=== PATIENT | female | born 1985 | race Caucasian/White ===

== ENCOUNTER 2017-04-19 16:28 | Inpatient (IN) | payer BC ==
[2017-04-19 17:06] VITALS: BMI 35.4
[2017-04-19 17:30] LABS: Amnisure Test RUPTURE DETECTED (No Rupture)
[2017-04-19 17:31] LABS: Amnisure Internal Control QC ACCEPTABLE (ACCEPTABLE)
[2017-04-19] MEDS ORDERED: LR / Pitocin 40 units/1000 ml 1,000 ML IV PRN (17:54)
[2017-04-19] MEDS ORDERED: HYDROcodone/Acetaminophen 5/325 mg Tablet PO PRN (17:54)
[2017-04-19] MEDS ORDERED: Lidocaine 1% (PF) 30 ML VIAL SC PRN (17:54)
[2017-04-19] MEDS ORDERED: Misoprostol 200 MCG TAB PR PRN (17:54)
[2017-04-19] MEDS ORDERED: Ondansetron HCl/PF 4 MG/2 ML Vial IVP PRN ×2 (17:54→22:33)
[2017-04-19] MEDS ORDERED: Acetaminophen 500 MG TAB PO PRN (17:54)
[2017-04-19] MEDS ORDERED: Ibuprofen 800 MG TAB PO PRN (17:54)
[2017-04-19] MEDS ORDERED: Promethazine HCl 25 MG/ML VIAL IM PRN ×2 (17:54→22:33)
[2017-04-19] MEDS ORDERED: LR 500 ML/Oxytocin 10 units 500 ML IV SCH (18:00)
[2017-04-19] MEDS: Lactated Ringer's 1,000 ML IV SCH ×2 (18:10→22:37)
[2017-04-19 18:27] LABS: Hemoglobin 13.1 g/dL (12.0-16.0); Mean Corpuscular HGB CONC 33.8 g/dL (32.0-36.0); Mean Corpuscular Hemoglobin 31.3 pg (27.0-31.0); Mean Corpuscular Volume 92.6 fl (81.0-99.0); Mean Platelet Volume 8.9 fL (7.4-10.4); Platelet Count 273 thou/uL (130-400); RBC Distribution Width 11.3 % (11.5-14.5); Red Blood Cell (RBC) Count 4.18 mill/uL (4.20-5.40)
[2017-04-19 19:16] LABS: Syphilis Antibody Nonreactive (Nonreactive); Syphilis Antibody Index 0.04 S/CO (<1.00 Non-Reactive)
[2017-04-19 19:17] LABS: HBSAg Index 0.23 S/CO (0-0.99); Hep B Surf Ag Non-Reactive S/CO (NonReactive)
[2017-04-19] MEDS ORDERED: Fentanyl 4 mcg/Marc 0.1% Cadd 100 ML ONE (21:42)
[2017-04-19] MEDS ORDERED: ePHEDrine/0.9% NaCl/PF SYRINGE 50 mg/10 ml SLOW IVP PRN (22:33)
[2017-04-19] MEDS ORDERED: diphenhydrAMINE 50 MG/ML VIAL IVP PRN (22:33)
[2017-04-19] MEDS ORDERED: Acetaminophen 325 MG TAB PO PRN (22:33)
[2017-04-19] MEDS ORDERED: Lactated Ringer's 500 ML IV PRN (22:33)
[2017-04-19] MEDS ORDERED: Eucerin (Mineral Oil/Petrolatum,White) 30 gm Jar TOP PRN (22:33)
[2017-04-19] MEDS ORDERED: Naloxone HCl 0.4 mg/ml Vial IVP PRN ×2 (22:33)
[2017-04-19] MEDS: Fentanyl 4mcg/Marcaine 0.1% Cassette 100 ML EPIDURAL SCH (22:39)
[2017-04-19] MEDS ORDERED: Communication Order-Pharmacy FS SCH (22:45)
[2017-04-20] MEDS: Lactated Ringer's 1,000 ML IV SCH ×2 (00:47→09:49)
[2017-04-20] MEDS: Fentanyl 4mcg/Marcaine 0.1% Cassette 100 ML EPIDURAL SCH ×2 (05:54→12:25)
[2017-04-20] MEDS ORDERED: FLU VACC QS2017-18 36 mo. & older 0.5 ML SYRINGE IM ONE (09:00)
[2017-04-20] MEDS ORDERED: Adacel (T-DAP) 0.5 ML VIAL IM ONE (14:47)
[2017-04-20] MEDS ORDERED: Bisacodyl 10 MG SUPP PR PRN (14:47)
[2017-04-20] MEDS ORDERED: Lanolin Ointment 7 GM TUBE TOP PRN (14:47)
[2017-04-20] MEDS ORDERED: LR / Pitocin 40 units/1000 ml 1,000 ML IV SCH (14:47)
[2017-04-20] MEDS ORDERED: Milk Of Magnesia 30 ML UDCUP PO PRN (14:47)
--- NOTE | 2017-04-20 15:17 | OP ---
DATE OF PROCEDURE: 04/20/2017 TIME: 1346 hours. PREOPERATIVE DIAGNOSES: 1. Postdates. 2. Macrosomia. POSTOPERATIVE DIAGNOSES: 1. Postdates. 2. Macrosomia. PROCEDURE: Spontaneous vaginal delivery with repair of a partial third-degree midline episiotomy. SURGEON: Clarence Herrera M.D. ANESTHESIA: Epidural. PROCEDURE: This 31-year-old white female G1, P0 taken to delivery room, complete and pushing. Prepp ed and draped sterilely. The mother pushed for approximately 1 hour and 45 minutes. She did very we ll. Dr. Waldron was present in case of dystocia. However, baby delivered nicely and smoothly. Baby was Delee'd on the peritoneum and baby delivered without any difficulty. The cord was clamped and c ut. Delivered the placenta, 3-vessel intact. A partial third-degree very small anal sphincter tear was repaired with 3-0 Vicryl. The second-degree was repaired with 3-0 chromic. Estimated blood loss was 400 mL. Sponge and instrument counts were correct.
[2017-04-20] MEDS: Ferrous Sulfate 325 MG TAB PO SCH (18:30)
[2017-04-20] MEDS ORDERED: ePHEDrine/0.9% NaCl/PF SYRINGE 50 mg/10 ml ONE (20:56)
[2017-04-20] MEDS ORDERED: Bupivacaine 0.25% HCL 30 ML VIAL ONE (20:56)
[2017-04-20] MEDS ORDERED: HYDROcodone/Acetaminophen 5/325 mg Tablet PO PRN (21:19)
[2017-04-20] MEDS: Ibuprofen 800 MG TAB PO SCH (22:19)
[2017-04-20] MEDS: Docusate Calcium (SURFAK) 240 MG CAP PO SCH (22:19)
[2017-04-21] MEDS: Ibuprofen 800 MG TAB PO SCH ×3 (05:59→21:50)
[2017-04-21 06:38] LABS: Hemoglobin 9.4 g/dL (12.0-16.0); Mean Corpuscular HGB CONC 34.1 g/dL (32.0-36.0); Mean Corpuscular Hemoglobin 32.1 pg (27.0-31.0); Mean Corpuscular Volume 94.2 fl (81.0-99.0); Mean Platelet Volume 8.6 fL (7.4-10.4); Platelet Count 196 thou/uL (130-400); RBC Distribution Width 11.4 % (11.5-14.5); Red Blood Cell (RBC) Count 2.92 mill/uL (4.20-5.40); White Blood Cell (WBC) Count 14.3 thou/uL (4.8-10.8)
[2017-04-21] MEDS: Prenatal Vitamin 1 TAB PO SCH (08:44)
[2017-04-21] MEDS: Docusate Calcium (SURFAK) 240 MG CAP PO SCH ×2 (08:44→21:50)
[2017-04-21] MEDS: Ferrous Sulfate 325 MG TAB PO SCH ×2 (08:44→18:13)
--- NOTE | 2017-04-21 08:59 | HP ---
HISTORY OF PRESENT ILLNESS: This is a 31-year-old white female G1, P0, admitted with EDC of 04/13/20 17 at 40 and 6-7th week, being admitted for a post-date induction. However, patient called earlier r eporting that she had rupture of membranes and will be going to labor and delivery sooner. Her prena juliana course has been uncomplicated. No prior rupture of membranes or contractions. No reported fever , nausea or vomiting. PAST MEDICAL HISTORY: Asthma, depression, anxiety. ALLERGIES: None. PAST SURGICAL HISTORY: Removal of left knee hemangioma at age 4 and wisdom teeth. FAMILY HISTORY: Father with hypertension. Paternal grandfather with hypertension and heart disease. Other family members with heart disease including maternal grandfather and paternal grandmother. SOCIAL HISTORY: The patient is a non-smoker. The patient is and remarried. 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 REVIEW OF SYSTEMS: As above. PHYSICAL EXAMINATION: VITAL SIGNS: Stable, afebrile. HEENT: Clear. HEART: Regular rate and rhythm. LUNGS: Clear. ABDOMEN: Soft, gravid. EXTREMITIES: With no edema. LABORATORY AND X-RAY FINDINGS: GBS negative; 3-hour GGT negative; HIV negative. Hematocrit 39.8. H IV negative. O positive blood type. RPR nonreactive. Rubella immune. Urine culture negative. Pap smear negative, GC chlamydia negative. ASSESSMENT: 1. A 41-week intrauterine . 2. Post-date. 3. Possible rupture of membranes to be evaluated. PLAN: 1. Admit for Cytotec/Pitocin induction. 2. Routine L&D orders. 3. Anesthesia evaluation.
[2017-04-21] MEDS ORDERED: FLU VACC QS2017-18 36 mo. & older 0.5 ML SYRINGE IM ONE (09:00)
[2017-04-22] MEDS: Ibuprofen 800 MG TAB PO SCH (05:53)
[2017-04-22] MEDS: Ferrous Sulfate 325 MG TAB PO SCH (08:59)
[2017-04-22] MEDS: Docusate Calcium (SURFAK) 240 MG CAP PO SCH (08:59)
[2017-04-22] MEDS: Prenatal Vitamin 1 TAB PO SCH (08:59)
[2017-04-22 09:51] VITALS: BP 98/51; TEMP 98
== END 2017-04-22 12:40 | disposition home or self-care (01) | DRG 775 ==
LOC: L&D/OP 16:28 → L&D 18:04 → 3SW 04-20 18:14
PROVIDERS: ADMIT Family Medicine; ATTEND Family Medicine
PROC: 10E0XZZ Delivery of Products of Conception, External Approach (ICD-10-PCS; principal; 2017-04-20)
PROC: 0DQR0ZZ Repair Anal Sphincter, Open Approach (ICD-10-PCS; 2017-04-20)
PROC: 0KQM0ZZ Repair Perineum Muscle, Open Approach (ICD-10-PCS; 2017-04-20)
DX: O48.0 Post-term pregnancy (principal); O70.20 Third degree perineal laceration during delivery, unspecified; F32.9 Major depressive disorder, single episode, unspecified; F41.9 Anxiety disorder, unspecified; J45.909 Unspecified asthma, uncomplicated; Z3A.41 41 weeks gestation of pregnancy; Z37.0 Single live birth; Z23 Encounter for immunization; O99.52 Diseases of the respiratory system complicating childbirth; O99.344 Other mental disorders complicating childbirth
CPT/HCPCS: 36415; 51701; 51702; 84112; 85027; 86780; 87340; 90715; 99285; J2001; J7120; S0020

== ENCOUNTER 2018-07-14 12:30 | Day surgery (SDC) | payer BC ==
[2018-07-14 13:12] VITALS: BMI 35.9
[2018-07-14 13:13] VITALS: BP 124/75; TEMP 98.5
--- NOTE | 2018-07-14 15:11 | ULT ---
FUltrasound biophysical profile: 07/14/2018 HISTORY: 33-year-old female in third trimester of with decreased movement. FINDINGS: movement: 2 tone: 2 breathing movement: 0 Amniotic fluid volume: 2 Total score: 6 out of 8 heart rate: 124 bpm Placenta: Anterior. No placenta previa. Maternal cervix: Obscured lie: Vertex DARLING: 13 cm IMPRESSION: Biophysical profile score of 6 out of 8, excluding the nonstress test.
--- NOTE | 2018-07-15 02:01 | SS ---
DATE OF ADMISSION: 07/14/2018 DATE OF DISCHARGE: 07/14/2018 REGULAR PHYSICIAN: Darleen Zayas DO. EVALUATING PHYSICIAN: Theron Robert MD CHIEF COMPLAINT: Decreased movement. HISTORY OF PRESENT ILLNESS: Ms. Whitt is a 33-year-old white G2, P1-0-0-1 with an estimated date of confinement of 09/12/2018, who presents complaining of decreased movement since late yesterday. She denies ruptured membranes or vaginal bleeding. Her care has been with Dr. Zayas. She called the office today and they directed her here for evaluation. PAST OBSTETRICAL HISTORY: One previous vaginal delivery at term without complications. PAST MEDICAL HISTORY: Asthma. PAST SURGICAL HISTORY: [place] teeth. CURRENT MEDICATIONS: 1. vitamins. 2. A rescue inhaler on a p.r.n. basis. ALLERGIES: NO KNOWN ALLERGIES. SOCIAL HISTORY: Denies tobacco, alcohol, or drug use. FAMILY HISTORY: Unremarkable. REVIEW OF SYSTEMS: Denies nausea, vomiting, fever, chills, ruptured membranes, or vaginal bleeding. PHYSICAL EXAMINATION: VITAL SIGNS: Stable and she is afebrile in triage. GENERAL: She is pleasant, in no acute distress. The patient is laughing with her family members. ABDOMEN: Soft, nontender, and gravid. PELVIC: Deferred. heart rate tracing is reassuring, and there are no decelerations. She does wilda movements on the nonstress test. Biophysical profile testing returns 6/8 with 2 points deducted for no breathing seen. ASSESSMENT: 1. 31-1/2 week intrauterine . 2. Reassuring assessment here in Labor and Delivery today. PLAN: The patient will be dismissed to home. She was told to keep herself well hydrated and to eat small frequent meals throughout the day and note kick counts. She was given a release from work for today. She may return tomorrow. I did discuss this with Dr. Zayas and she agrees with the plan. Job ID: [id number]
== END 2018-07-14 15:55 | disposition home health service (06) ==
LOC: L&D/OP 12:30
PROVIDERS: ATTEND Obstetrics & Gynecology
DX: O36.8130 Decreased fetal movements, third trimester, not applicable or unspecified (principal); O99.513 Diseases of the respiratory system complicating pregnancy, third trimester; J45.909 Unspecified asthma, uncomplicated; Z3A.31 31 weeks gestation of pregnancy; Z79.899 Other long term (current) drug therapy
CPT/HCPCS: 76819; 99282

== ENCOUNTER 2018-09-13 22:00 | Inpatient (IN) | payer BC ==
--- NOTE | 2018-09-13 16:44 | PDOC.LDHP ---
Labor and Delivery H&P Chief complaint: scheduled induction HPI: 33 yo @ 40w1d by 16 week sono who presents for elective IOL. PMHx: Depression on Wellbutrin and controlled asthma. Due date: 09/12/18 Dating criteria: second trimester ultrasound Grav: 2 Para: 1 OB History Details: 1 term 2018 Current complications: none Abnormal US findings: No Past Medical History: Asthma Depression Current medications: pre- vitamins, other (Wellbutrin Albuterol PRN) Previous surgical history: none Allergies/Adverse Reactions: Allergies Allergy/AdvReac Type Severity Reaction Status Date / Time No Known Allergies Allergy Verified 09/13/18 23:39 Social history: none - Physical Exam Vital signs reviewed and normal: yes General: NAD Heart: RRR Lungs: CTAB Abdomen: gravid Extremeties: no edema FHT: category 1 (120s, mod leonor, +accels, no decels) [place] contractions every: q2-3 min s/p cytotec - Vaginal Exam cm dilated: 4 (cephalic, AROM clear ) Effacement: 50% Station: -2 - OB Labs Blood type: O RH: positive Antibody Screen: negative HIV: negative RPR: negative HEPSAg: negative 1 hour GCT: negative GBS: negative Urine drug screen: negative Rubella: immune - Assessment L&D Assessment: elective induction at term - Plan Plan: admit to L&D, cervical ripening, informed consent obtained, anesthesia consult for pain management
[2018-09-13] MEDS ORDERED: Lidocaine 1% (PF) 30 ML VIAL SC PRN (23:33)
[2018-09-13] MEDS ORDERED: Ondansetron PF 4 MG/2 ML Vial IVP PRN (23:33)
[2018-09-13] MEDS ORDERED: Methylergonovine 0.2 MG/ML VIAL IM PRN (23:33)
[2018-09-13] MEDS ORDERED: Promethazine HCl 25 MG/ML VIAL IM PRN (23:33)
[2018-09-13] MEDS ORDERED: Ibuprofen 800 MG TAB PO PRN (23:33)
[2018-09-13] MEDS ORDERED: NS / Oxytocin 40 units/1000ml 1,000 ML IV PRN (23:33)
[2018-09-13] MEDS ORDERED: HYDROcodone/Acetaminophen 5/325 mg Tablet PO PRN (23:33)
[2018-09-13] MEDS ORDERED: Butorphanol Tartrate 1 MG/ML VIAL SLOW IVP PRN (23:33)
[2018-09-13] MEDS ORDERED: Misoprostol 200 MCG TAB PR PRN (23:33)
[2018-09-13] MEDS ORDERED: Acetaminophen 500 MG TAB PO PRN (23:33)
[2018-09-13] MEDS: Lactated Ringer's 1,000 ML IV SCH (23:46)
[2018-09-13 23:48] VITALS: BMI 37.5
[2018-09-14 00:14] LABS: Hemoglobin 11.4 g/dL (12.0-16.0); Mean Corpuscular HGB CONC 33.1 g/dL (32.0-36.0); Mean Corpuscular Hemoglobin 28.5 pg (27.0-31.0); Mean Corpuscular Volume 86.1 fL (78.0-98.0); Mean Platelet Volume 9.9 fL (7.4-10.4); Platelet Count 257 thou/uL (130-400); RBC Distribution Width 12.7 % (11.5-14.5); Red Blood Cell (RBC) Count 3.99 mill/uL (4.20-5.40); White Blood Cell (WBC) Count 11.1 thou/uL (4.8-10.8)
[2018-09-14] MEDS: Misoprostol 100 MCG TAB VAG SCH (00:46)
[2018-09-14 00:52] LABS: HIV (1/2) Antibody/Antigen Non-Reactive (NonReactive); HIV 1/2 INDEX 0.12 S/CO (<1.00)
[2018-09-14 01:25] LABS: Syphilis Antibody Nonreactive (Nonreactive); Syphilis Antibody Index 0.03 S/CO (<1.00 Non-Reactive)
[2018-09-14 01:45] LABS: Hep B Surf Ag Non-Reactive S/CO (NonReactive)
[2018-09-14 01:47] LABS: HBSAg Index 0.24 S/CO (0-0.99)
[2018-09-14] MEDS: Lactated Ringer's 1,000 ML IV SCH ×3 (04:10→15:26)
[2018-09-14] MEDS ORDERED: Fentanyl 4 mcg/Bup 0.1% Cadd 100 ML ONE ×2 (05:21→13:32)
[2018-09-14] MEDS ORDERED: Communication Order-Pharmacy FS SCH (06:00)
[2018-09-14] MEDS ORDERED: ePHEDrine/0.9% NaCl/PF SYRINGE 50 mg/10 ml SLOW IVP PRN (06:00)
[2018-09-14] MEDS ORDERED: Lactated Ringer's 500 ML IV PRN (06:00)
[2018-09-14] MEDS ORDERED: Fentanyl 4 mcg/Bupivacaine 0.1% Cassette 100 ML EPIDURAL SCH (06:00)
[2018-09-14] MEDS ORDERED: Ondansetron PF 4 MG/2 ML Vial IVP PRN (06:00)
[2018-09-14] MEDS ORDERED: Promethazine HCl 25 MG/ML VIAL IM PRN (06:00)
[2018-09-14] MEDS ORDERED: Naloxone HCl 0.4 mg/ml Vial IVP PRN ×2 (06:00)
[2018-09-14] MEDS ORDERED: diphenhydrAMINE 50 MG/ML VIAL IVP PRN (06:00)
[2018-09-14] MEDS ORDERED: Bupivacaine/Epinephrine 0.25% 30 ML VIAL ONE (11:00)
[2018-09-14] MEDS: NS w/ Oxytocin 10 units 500 ML IV SCH (11:23)
[2018-09-14 17:27] LABS: Actual Bicarbonate (HCO3a) 20.6 mEq/L (22-28); Base Excess (BEa) -5.8 mEq/L (-2.0 to +3.0)
--- NOTE | 2018-09-14 17:49 | PDOC.OPDEL ---
OB Operative/Delivery Note Delivery Dr/Surgeon: Darleen Zayas DO Pre-Delivery Diagnosis: elective induction Procedure/Post Delivery Dx: operative vaginal delivery (FAVD) Weeks gestation: 40 Anesthesia: epidural - Findings A Sex: male - 1 min: 8 - 5 min: 9 - Additional Findings/Plan Placenta delivered: spontaneous Repaired Obstetrical Laceration: 2nd degree Estimated blood loss: QBL 159 cc Compilations/Other Findings: Low FAVD performed due to recurrent prolonged decelerations to 80s-90s with ctx with minimal recovery between. C/C/+2 with pushing in NICOLLE position. Verbal consent reviewed with pt. No complication with FAVD, Chapa Luikart used. Cord gas obtained and wnl. Post delivery plan: routine recovery
[2018-09-15] MEDS: Misoprostol 100 MCG TAB VAG SCH ×9 (00:37→22:25)
[2018-09-15] MEDS: NS w/ Oxytocin 10 units 500 ML IV SCH (00:42)
[2018-09-15] MEDS: Lactated Ringer's 1,000 ML IV SCH ×4 (00:43→22:25)
[2018-09-15] MEDS: Acetaminophen 325 MG TAB PO PRN ×2 (02:29→11:39)
[2018-09-15] MEDS: Ibuprofen 800 MG TAB PO SCH ×3 (05:56→22:24)
[2018-09-15] MEDS ORDERED: Bisacodyl 10 MG SUPP PR PRN (08:19)
[2018-09-15] MEDS ORDERED: diphenhydrAMINE 25 MG CAP PO PRN (08:19)
[2018-09-15] MEDS ORDERED: Milk Of Magnesia 30 ML UDCUP PO PRN (08:19)
[2018-09-15] MEDS ORDERED: Preparation H Ointment 28 GM TUBE PR PRN (08:19)
[2018-09-15] MEDS ORDERED: Benzocaine-Menthol 82.5 ML CAN TOP PRN (08:19)
--- NOTE | 2018-09-15 08:24 | PDOC.PP ---
Post Progress Note Post Day #: 1 Subjective: No concerns. Minimal pain and lochia. Infnat breast feeding. PO intake tolerated: yes Flatus: yes Ambulation: yes Vital Signs (12 hours) Temp Pulse Resp BP 09/15/18 04:45 97.8 F 73 18 94/54 L 09/15/18 01:00 98.0 F 94 18 98/53 L 09/14/18 21:15 97.1 F L 89 18 105/51 L Weight Weight 212 lb - Physical Examination General: NAD Cardiovascular: RRR Respiratory: non-labored breathing Abdominal: no distention, appropriately TTP Fundus firm & at: below umbilicus Extremities: negative homans (B) Neurological: no gross focal deficits Psychiatric: A&Ox3, normal affect Result Diagrams: 09/14/18 00:03 Additional Labs: Post Labs Blood Type O POSITIVE 09/14/18 00:03 Hep Bs Antigen Non-Reactive S/CO (NonReactive) 09/14/18 00:03 (1) Forceps delivery Code(s): O75.9 - COMPLICATION OF LABOR AND DELIVERY, UNSPECIFIED Status: Acute - Assessment/Plan PPD1 s/p FAVD VSSAF Continue PP care, plan for possible d/c home this PM with .
[2018-09-15] MEDS ORDERED: NS / Oxytocin 40 units/1000ml 1,000 ML IV SCH (08:30)
[2018-09-15 09:19] LABS: #Eosinphils 0.3 thou/uL (0.0-0.7); #Lymphocytes 1.7 thou/uL (1.20-3.40); #Monocytes 0.6 thou/uL (0.11-0.59); #Neutrophils 9.1 thou/uL (1.40-6.50); %Basophils 0.4 % (0.0-1.0); %Eosinophils 2.8 % (0.0-10.0); %Lymphocytes 14.4 % (21.0-51.0); %Monocytes 5.3 % (0.0-10.0); %Neutrophils 77.2 % (42.0-75.0); Mean Corpuscular Hemoglobin 28.7 pg (27.0-31.0); Mean Corpuscular Volume 87.1 fL (78.0-98.0); Mean Platelet Volume 10.2 fL (7.4-10.4); Platelet Count 219 thou/uL (130-400); RBC Distribution Width 12.7 % (11.5-14.5); Red Blood Cell (RBC) Count 4.17 mill/uL (4.20-5.40); White Blood Cell (WBC) Count 11.8 thou/uL (4.8-10.8)
[2018-09-15] MEDS: Docusate Calcium (SURFAK) 240 MG CAP PO SCH ×2 (09:37→22:24)
[2018-09-15] MEDS: HYDROcodone/Acetaminophen 5/325 mg Tablet PO PRN ×2 (12:39→16:50)
[2018-09-16] MEDS: Ibuprofen 800 MG TAB PO SCH (06:42)
[2018-09-16 08:04] VITALS: BP 103/53; TEMP 98
--- NOTE | 2018-09-16 08:49 | PDOC.PP ---
Post Progress Note Post Day #: 2 Subjective: No concerns. Minimal pain and lochia. breast feeding. D/C held for screening @ 36 hrs. PO intake tolerated: yes Flatus: yes Ambulation: yes Vital Signs (12 hours) Temp Pulse Resp BP Pulse Ox 09/16/18 08:03 98.0 F 71 20 103/53 L 98 Weight Weight 212 lb - Physical Examination General: NAD Cardiovascular: RRR Respiratory: non-labored breathing Abdominal: no distention, appropriately TTP Fundus firm & at: below umbilicus Extremities: negative homans (B) Neurological: no gross focal deficits Psychiatric: A&Ox3, normal affect Result Diagrams: 09/15/18 09:10 Additional Labs: Post Labs Blood Type O POSITIVE 09/14/18 00:03 Hep Bs Antigen Non-Reactive S/CO (NonReactive) 09/14/18 00:03 (1) Forceps delivery Code(s): O75.9 - COMPLICATION OF LABOR AND DELIVERY, UNSPECIFIED Status: Acute - Assessment/Plan PPD2 VSSAF D/C home today, PP 6 weeks
[2018-09-16] MEDS: NS w/ Oxytocin 10 units 500 ML IV SCH (10:13)
[2018-09-16] MEDS: Misoprostol 100 MCG TAB VAG SCH (10:14)
[2018-09-16] MEDS: Lactated Ringer's 1,000 ML IV SCH (10:14)
[2018-09-16] MEDS: Docusate Calcium (SURFAK) 240 MG CAP PO SCH (10:16)
== END 2018-09-16 12:15 | disposition home or self-care (01) | DRG 807 ==
LOC: L&D 23:34 → 3SW 09-14 20:01
PROVIDERS: ADMIT Obstetrics & Gynecology; ATTEND Obstetrics & Gynecology
PROC: 10D07Z3 Extraction of Products of Conception, Low Forceps, Via Natural or Artificial Opening (ICD-10-PCS; principal; 2018-09-14)
PROC: 0KQM0ZZ Repair Perineum Muscle, Open Approach (ICD-10-PCS; 2018-09-14)
DX: O76 Abnormality in fetal heart rate and rhythm complicating labor and delivery (principal); Z37.0 Single live birth; O48.0 Post-term pregnancy; O99.344 Other mental disorders complicating childbirth; O99.52 Diseases of the respiratory system complicating childbirth; F32.9 Major depressive disorder, single episode, unspecified; J45.909 Unspecified asthma, uncomplicated; O70.1 Second degree perineal laceration during delivery; O66.5 Attempted application of vacuum extractor and forceps; Z3A.40 40 weeks gestation of pregnancy
CPT/HCPCS: 36415; 51702; 82805; 85025; 85027; 86780; 86850; 86900; 86901; 87340; 87389; J2590